=== PATIENT | female | born 1945 | race African-American/Black ===

== ENCOUNTER 2018-10-13 09:49 | Inpatient (IN) | payer MEDICARE, MEDICAID ==
[~2018-10-13] VITALS: Ht 165.1 cm; Wt 74.8 kg
[2018-10-13] MEDS ORDERED: ALBUTEROL SULF8.5 GM INH (09:54)
[2018-10-13] MEDS ORDERED: AMITRIPTYLINE100 MG PO (09:54)
[2018-10-13] MEDS ORDERED: LIPITOR20 MG PO (09:55)
[2018-10-13] MEDS ORDERED: NORVASC10 MG PO (09:55)
[2018-10-13] MEDS ORDERED: KLONOPIN1 MG PO (09:56)
[2018-10-13] MEDS ORDERED: PLAVIX75 MG PO (09:56)
[2018-10-13] MEDS ORDERED: COREG12.5 MG PO (09:56)
[2018-10-13] MEDS ORDERED: COMBIVENT RESPIM4 GM INH ×2 (09:57→09:58)
[2018-10-13] MEDS ORDERED: FLUTICASONE PRO16 GM NASAL (09:59)
[2018-10-13] MEDS ORDERED: NEXIUM40 MG PO (09:59)
[2018-10-13] MEDS ORDERED: NEURONTIN 300300 MG PO (10:10)
[2018-10-13] MEDS ORDERED: PRANDIN1 MG PO (10:11)
[2018-10-13] MEDS ORDERED: GLIPIZIDE10 MG PO (10:11)
[2018-10-13] MEDS ORDERED: ZANAFLEX2 M1 PO (10:11)
[2018-10-13] MEDS ORDERED: ULTRAM50 MG PO (10:12)
[2018-10-13] MEDS ORDERED: EFFEXOR75 MG PO (10:12)
[2018-10-13 11:03] LABS: BASOPHILS 0.1 % (0-2); EOSINOPHILS 0.1 % (0-7); HEMATOCRIT 34.6 % (36.0-48.0); HEMOGLOBIN 11.9 g/dL (12-16); IMMATURE GRANULOCYTES 0.4 % (0-5); LYMPHOCYTES 11.8 % (15-50); MCH 31.6 pg (26.0-34.0); MCHC 34.4 g/dL (31.0-37.0); MCV 91.8 fL (80.0-100.0); MEAN PLATELET VOLUME 9.5 fL (7.4-10.4); MONOCYTES 17.4 % (2-11); NEUTROPHILS 70.2 % (40-80); PLATELET COUNT 213 10x3/uL (130-400); RBC 3.77 10x6/uL (4.00-5.40); RDW 12.6 % (11.5-14.5); WBC 8.4 10x3/uL (4.8-10.8)
[2018-10-13 11:27] LABS: ALBUMIN 2.4 g/dL (3.4-5.0); ALKALINE PHOSPHATASE 69 U/L (46-116); ALT (SGPT) 26 U/L (10-68); CALC OSMOLALITY 258 mosm/kg (275-300); CALCIUM 8.2 mg/dL (8.5-10.1); CARBON DIOXIDE 28.6 mmol/L (21.0-32.0); CHLORIDE - SERUM 91 mmol/L (98-107); CREATININE - SERUM 0.7 mg/dL (0.6-1.3); GLUCOSE 197 mg/dL (74-106); POTASSIUM - SERUM 3.8 mmol/L (3.5-5.1); PROTEIN - SERUM 7.3 g/dL (6.4-8.2); SODIUM 127 mmol/L (136-145); UREA NITROGEN 10 mg/dL (7-18); eGFR NON AFRICAN AMERICAN 87 mL/min (90-120)
[2018-10-13 14:41] LABS: CKMB 23.9 U/L (0.0-3.6); TROPONIN-I < 0.017 ng/mL (0.000-0.060)
[2018-10-13 14:42] LABS: CREATINE KINASE 3703 UL (21-215)
[2018-10-13 14:50] LABS: APTT 27.6 SECONDS (22.8-39.4); INR 1.16 (0.85-1.17); PROTIME 14.3 SECONDS (11.6-15.0)
[2018-10-13 15:48] VITALS: BP 131/63; BMI 27.5
--- NOTE | 2018-10-13 16:00 | NUR ---
RECIEVED PT FROM ER VIA STRETCHER. ER NURSE WITH PT. ASSISTED PT INTO BED. VSS AND WNL. ASSESSMENT PERFORMED. DENIES ANY NEEDS AT THIS TIME, WILL CONT TO FOLLOW PLAN OF CARE
--- NOTE | 2018-10-13 16:39 | MORECARE ---
CASE MANAGEMENT DISCHARGE SUMMARY PATIENT: TRISTON DUNN UNIT: [id number] ADM DATE: 10/13/18 AGE: 73 : 47 SEX: F ROOM/BED: D.1209 AUTHOR: DONNA MAXWELL PHYSICIAN: REFERRING PHYSICIAN: TEETEE LUKE MD DATE OF SERVICE: 10/13/18 Discharge Plan Patient Name: TRISTON DUNN Facility: [facility]:[place] : 1945 Planned Disposition: Home Anticipated Discharge Date: 10/16/18 Discharge Date: Expected LOS: 3 Initial Reviewer: [email or web address] Initial Review Date: 10/13/2018 Generated: 10/13/18 5:39 pm Patient Name: TRISTON DUNN Page 00669 at 1639 All edits/amendments must be made on the electronic document DICTATION DATE: 10/13/18 163 SWITCHBOARD RECEPTIONIST: BALA 10/13/18 1639 RPT#: [id number] DC DATE: STATUS: ADM IN [facility] [address] [place] [address] END OF REPORT
--- NOTE | 2018-10-13 16:48 | MORECARE ---
CASE MANAGEMENT DISCHARGE SUMMARY PATIENT: TRISTON DUNN UNIT: [id number] ADM DATE: 10/13/18 AGE: 73 : 47 SEX: F ROOM/BED: D.1209 AUTHOR: ALISSA,DOC PHYSICIAN: REFERRING PHYSICIAN: TEETEE LUKE MD DATE OF SERVICE: 10/13/18 Discharge Plan Patient Name: TRISTON DUNN Facility: [facility]:[place] : 1945 Planned Disposition: Home Anticipated Discharge Date: 10/16/18 Discharge Date: Expected LOS: 3 Initial Reviewer: [email or web address] Initial Review Date: 10/13/2018 Generated: 10/13/18 5:48 pm DCP- Discharge Planning Updated by [email or web address]: Tricia Valera on 10/13/18 3:[address] Patient Name: TRISTON DUNN Admission Status: ER Accout number: [id number] Admission Date: 10-13-2018 : 1945 Admission Diagnosis: Attending: TEETEE LUKE Current LOS: 1 Anticipated DC Date: 10-16-2018 Planned Disposition: Home Primary Insurance: UNINSURED DISCOUNT PLAN Discharge Planning Comments: CM met with patient to complete initial dc planning assessment. CM educated patient on the CM role and verbal consent given by patient to complete assessment. Very hard at times to understand what patient is saying. Patient reports she lives at home alone and takes care of herself. At discharge patient plans to return home and feels this is a safe discharge. CM discussed availability of home health, rehab services, and medical equipment. Patient reports she has home health but she cant remember the name of the agency. Patient denied known discharge needs at this time. CM will continue to follow and will assist as needed with dc plans/needs. Street Engineer: Tricia Valera RN, [facility] DCPIA - Discharge Planning Initial Assessment Updated by [email or web address]: Tricia Valera on 10/13/18 4:42 pm * Is the patient Alert and Oriented? Yes * How many steps to enter\exit or inside your home? None * PCP Trent Marie * Pharmacy A pharmacy in [place] * Preadmission Environment Home Alone * ADLs Independent * Equipment Oxygen Rolling Walker Wheelchair * List name and contact numbers for known caregivers / representatives who currently or will assist patient after discharge: Shane elyva - [phone] * Verbal permission to speak to the caregivers and representatives has been obtained from the patient. Yes * Community resources currently utilized Home Health * Please name any agencies selected above. She doesn't know who the agency is. * Additional services required to return to the preadmission environment? No * Can the patient safely return to the preadmission environment? Yes * Has this patient been hospitalized within the prior 30 days at any hospital? No Last DP export: 10/13/18 3:39 p Patient Name: TRISTON DUNN Page [id number] at 1648 All edits/amendments must be made on the electronic document DICTATION DATE: 10/13/181647 FRUIT THINNER: BALA 10/13/181647 RPT#: [id number] DC DATE: STATUS: ADM IN [facility] [address] [place] [address] END OF REPORT
[2018-10-13 18:03] LABS: APPEARANCE CLEAR (CLEAR); BILIRUBIN NEGATIVE (NEGATIVE); COLOR YELLOW (YELLOW); GLUCOSE 1000 mg/dL (NEGATIVE); KETONE NEGATIVE (NEGATIVE); NITRITE NEGATIVE (NEGATIVE); PROTEIN TRACE mg/dL (NEGATIVE); UROBILINOGEN NORMAL (NORMAL)
[2018-10-13 18:11] LABS: BACTERIA MODERATE /hpf (NONE SEEN); EPITHELIAL CELLS 0-5 /hpf (0-5); RED CELLS - URINE 0-5 /hpf (0-5); WHITE CELLS - URINE 0-5 /hpf (0-5)
--- NOTE | 2018-10-13 18:15 | NUR ---
PT BROUGHT IN PAPERWORK FROM [facility] IN [place], THIS PAPERWORK SHOWS AN ADMISSION ON 10/07/18 AND DISCHARGE ON 10/08/18. THIS RN CALLED [facility] AND SPOKE WITH CHARGE NURSE. PER CHARGE NURSE, PT WAS ADMITTED IN THE AFTERNOON AND THE NEXT DAY HER FAMILY WANTED HER DISCHARGED FROM THE FACILITY. THIS RN CALLED CARLEE, PT'S SISTER, TO DISCUSS THE RECENT ADMISSION TO [facility]. PER CARLEE, THE FAMILY TOOK THE PT TO [facility] IN [place] DUE TO HER "ACTING UP." (WHEN ASKED FOR MORE DETAIL ON "ACTING UP" THE SISTER SAID THE PT WAS YELLING AND SCREAMING AT PEOPLE) ONCE THERE AT [facility], THE FAMILY REQUESTED AN EVALUATION OF THE PT DUE TO HER NEW ONSET OF "ACTING UP." THIS IS WHEN THE PT WAS TRANSFERRED TO [facility] IN [place]. THE SISTER STATES THE FAMILY DID NOT WANT THE PT AT [facility] BECAUSE "ALL THEY DO IS KEEP THEM DOPED UP." THE SISTER STATES SHE WAS NOT WITH THE PT WHEN THE PT WAS "ACTING OUT" AND THAT THE PT'S SON-IN-LAW WAS PRESENT. SISTER GAVE RN THE SON-IN-LAW'S NUMBER. PER THE PT'S SON-IN-LAW, THE PATIENT WAS OUTSIDE YELLING AT HER NEIGHBORS AND COMPLAINING OF CHILDREN IN HER HOUSE. WHEN THE SON-IN-LAW SHOWED UP, THE PT HAD HER FRONT DOOR WIDE OPEN AND SHE WAS IN HER ROOM YELLING ABOUT THE CHILDREN. SON-IN-LAW STATES THERE WERE NO CHILDREN PRESENT. THIS IS WHEN HE DECIDED TO TAKE THE PT TO [facility] IN [place]. THIS IS WHAT PRECEEDED THE ABOVE NOTES. SON-IN-LAW STATES THEY HAVE A CAREGIVER THAT COMES IN THE MORNINGS TO ASSIST THE PT WITH MEALS AND HER DAILY MEDS. SON-IN-LAW STATES THE NEW ONSET OF YELLING AND SEEING THINGS HAS BEEN GOING ON FOR ABOUT 3 WEEKS. THE FAMILY IS CONCERNED THAT THE NEW ONSET IS DUE TO MEDICATIONS. SINCE PT HAS BEEN ON THE FLOOR SHE HAS PULLED THE TUBING OFF OF HER IV AND THEN STARTED YELLING BECAUSE HER BED WAS WET FROM THE NS THAT DRIPPED INTO HER BED. SHE THEN STARTED YELLING ONCE RN DISCONNECTED NS FROM THE PIV BECAUSE THERE WAS BLOOD IN THE J-LOOP. RN CALMED PT DOWN AND A FULL BED LINEN CHANGE WAS PROVIDED.
[2018-10-13 20:15] VITALS: BP 148/73
[2018-10-14 00:30] VITALS: BP 134/63
[2018-10-14 05:47] VITALS: BP 147/75
[2018-10-14 07:15] LABS: APPEARANCE CLEAR (CLEAR); BILIRUBIN NEGATIVE (NEGATIVE); COLOR DK YELLOW (YELLOW); GLUCOSE 1000 mg/dL (NEGATIVE); KETONE NEGATIVE (NEGATIVE); NITRITE NEGATIVE (NEGATIVE); PROTEIN 1+ mg/dL (NEGATIVE); UROBILINOGEN NORMAL (NORMAL)
[2018-10-14 07:17] LABS: BACTERIA FEW /hpf (NONE SEEN); EPITHELIAL CELLS 0-5 /hpf (0-5); RED CELLS - URINE 0-5 /hpf (0-5); WHITE CELLS - URINE 0-5 /hpf (0-5)
[2018-10-14 07:32] LABS: BASOPHILS 0.1 % (0-2); EOSINOPHILS 0.3 % (0-7); HEMATOCRIT 34.8 % (36.0-48.0); IMMATURE GRANULOCYTES 0.1 % (0-5); LYMPHOCYTES 16.5 % (15-50); MCH 31.5 pg (26.0-34.0); MCHC 34.5 g/dL (31.0-37.0); MCV 91.3 fL (80.0-100.0); MEAN PLATELET VOLUME 9.4 fL (7.4-10.4); MONOCYTES 11.5 % (2-11); NEUTROPHILS 71.5 % (40-80); PLATELET COUNT 243 10x3/uL (130-400); RBC 3.81 10x6/uL (4.00-5.40); RDW 12.7 % (11.5-14.5); WBC 6.9 10x3/uL (4.8-10.8)
[2018-10-14 07:40] LABS: UDS - AMPHET NEGATIVE QUAL (NEGATIVE); UDS - BARB NEGATIVE QUAL (NEGATIVE); UDS - BENZO NEGATIVE QUAL (NEGATIVE); UDS - COCAINE NEGATIVE QUAL (NEGATIVE); UDS - OPIATE NEGATIVE QUAL (NEGATIVE); UDS - PCP NEGATIVE QUAL (NEGATIVE); UDS - THC NEGATIVE QUAL (NEGATIVE)
--- NOTE | 2018-10-14 08:00 | NUR ---
AWAKE AND ALERT. DENIES NEEDS. ORIENTED X3 BUT HAS PERIODS OF FORGETFULLNESS POSSIBLE CONFUSION. LUNGS ARE CLEAR BILATERALLY, NO COUGH NOTED. SKIN IS INTACT WITHOUT REDNESS. IV TO LEFT HAND IS PATENT BUT CONTINUES TO BEEP OFTEN. PATIENT COMPLAINED IT KEPT HER UP ALL PM. WILL MONITOR. BREAKFAST SERVED IN ROOM. DENIES NEEDS.
[2018-10-14 08:10] LABS: ALBUMIN 2.4 g/dL (3.4-5.0); ALKALINE PHOSPHATASE 86 U/L (46-116); ALT (SGPT) 34 U/L (10-68); BILIRUBIN - TOTAL 0.75 mg/dL (0.2-1.3); CALC OSMOLALITY 257 mosm/kg (275-300); CALCIUM 8.3 mg/dL (8.5-10.1); CARBON DIOXIDE 28.2 mmol/L (21.0-32.0); CHLORIDE - SERUM 94 mmol/L (98-107); CREATININE - SERUM 0.5 mg/dL (0.6-1.3); GLUCOSE 125 mg/dL (74-106); POTASSIUM - SERUM 3.5 mmol/L (3.5-5.1); PROTEIN - SERUM 7.5 g/dL (6.4-8.2); SODIUM 129 mmol/L (136-145); UREA NITROGEN 6 mg/dL (7-18); eGFR NON AFRICAN AMERICAN > 90 mL/min (90-120)
--- NOTE | 2018-10-14 09:00 | NUR ---
UP TO BSC WITH ONE PERSON MIN ASSIST. GAIT IS NOT STEADY AT THIS TIME. FALL PRECAUTIONS IN PLACE WELL.
[2018-10-14 09:07] VITALS: BP 132/69
[2018-10-14 09:36] LABS: % SATURATION 9 % (15-55); IRON 24 ug/dl (35-150); TOTAL IRON BIND CAPACITY 256 ug/dl (260-445); UNSAT IRON BIND CAPACITY 232 ug/dl (150-375)
--- NOTE | 2018-10-14 10:30 | NUR ---
UP TO BSC WITH ONE PERSON ASSIST. VOIDED WITHOUT DIFFICULTY. PATIENT WAS UP ON SIDE OF BED BEFORE STAFF COULD GET TO ROOM. WILL MONITOT. ENCOURAGED TO USE CALL LIGHT AND WAIT FOR ASSISTANCE.
--- NOTE | 2018-10-14 12:00 | NUR ---
FSBS 165. GIVEN 2 UNITS REGULAR SUBQ PER SS.
[2018-10-14 12:13] VITALS: Ht 165.1 cm; Wt 74.8 kg
--- NOTE | 2018-10-14 12:30 | NUR ---
LUNCH SERVED IN ROOM.
--- NOTE | 2018-10-14 13:45 | NUR ---
UP TO BS WITH ONE PERSON ASSIST. STAFF WAS WITH PATIENT BUT SHE FELL TO FLOOR ON HER BACKSIDE. REPORTS SOME PAIN TO THAT AREA. DENIES NEEDS.
[2018-10-14 13:50] VITALS: BP 124/54
--- NOTE | 2018-10-14 15:00 | NUR ---
ATE MOST OF LUNCH TRAY. UP TO BSC WITH ONE PERSON ASSIST. IV TO LEFT WRIST NON FUNCTIONAL. D/C WITH CATHETER INTACT. RESITED TO LEFT FORARM AFTER ONE ATTEMPT WITH 20 G. DENIES NEEDS.
[2018-10-14 17:35] VITALS: BP 133/64
[2018-10-14 19:30] VITALS: BP 125/63
--- NOTE | 2018-10-14 19:33 | NUR ---
RESPONDED TO PATIENT'S BED ALARM SOUNDING. ASSISTED PATIENT TO AND FROM BSC. COLLECTED STOOL SPECIMEN. PATIENT DENIES OTHER NEEDS AT THIS TIME. NO S/S OF DISTRESS. BED IN LOWEST POSITION AND CALL LIGHT WITHIN REACH. ENCOURAGED THE PATIENT TO CALL IF SHE HAS NEEDS. WILL CONTINUE TO MONITOR.
[2018-10-15] VITALS: BP 145/74
[2018-10-15 04:00] VITALS: BP 124/56
[2018-10-15 08:00] VITALS: BP 128/67
--- NOTE | 2018-10-15 08:06 | NUR ---
AWAKE AND ALERT. ORIENTED X3. NO C/O PAIN THIS AM JUST FEELS LOUSY FROM LACK OF SLEEP. LUNGS ARE CLEAR BILATERALLY, NO COUGH NOTED. SKIN IS INTAC WTIHOUT REDNESS. IV TO LEFT FOREARM IS PATENT WIHHOUT REDNESS AT INSERTION SITE. SITTING UP ON SIDE OF BED EATING BREAKFAST. DENIES NEEDS.
--- NOTE | 2018-10-15 09:30 | NUR ---
AMBULATED IN HALLWAY WITH PT USING RW. UP TO BSC WITH ONE PERSON MIN ASSIST HAD LARGE SOFT SEMI FORMED BM. DENIES NEEDS.
[2018-10-15 09:43] LABS: BASOPHILS 0.2 % (0-2); CALCIUM 8.2 mg/dL (8.5-10.1); CARBON DIOXIDE 28.3 mmol/L (21.0-32.0); CHLORIDE - SERUM 96 mmol/L (98-107); EOSINOPHILS 0.7 % (0-7); HEMATOCRIT 33.1 % (36.0-48.0); HEMOGLOBIN 11.1 g/dL (12-16); IMMATURE GRANULOCYTES 0.2 % (0-5); LYMPHOCYTES 15.2 % (15-50); MCH 30.8 pg (26.0-34.0); MCHC 33.5 g/dL (31.0-37.0); MCV 91.9 fL (80.0-100.0); MONOCYTES 12.1 % (2-11); NEUTROPHILS 71.6 % (40-80); PLATELET COUNT 240 10x3/uL (130-400); POTASSIUM - SERUM 3.4 mmol/L (3.5-5.1); RDW 12.6 % (11.5-14.5); SODIUM 131 mmol/L (136-145); WBC 5.6 10x3/uL (4.8-10.8); eGFR NON AFRICAN AMERICAN 87 mL/min (90-120)
[2018-10-15 09:46] LABS: CALC OSMOLALITY 264 mosm/kg (275-300); CREATININE - SERUM 0.7 mg/dL (0.6-1.3); GLUCOSE 195 mg/dL (74-106); UREA NITROGEN 4 mg/dL (7-18)
[2018-10-15 12:00] VITALS: BP 116/59
[2018-10-15 16:22] VITALS: BP 106/64
--- NOTE | 2018-10-15 18:07 | NUR ---
ATE ALL OF SUPPER. UP TO BSC WITH ONE PERSON ASSIST. HAD LARGE LIGHT BROWN COW ROHITH STOOL. SKIN CARE PER SELF. DENIES NEEDS. NO CHANGES NOTED.
--- NOTE | 2018-10-15 19:22 | NUR ---
RESPONDED TO PATIENT'S BED ALARM SOUNDING. ASSISTED PATIENT BACK TO BED AND REMINDED HER TO USE HER CALL LIGHT IF SHE HAS NEEDS. PATIENT DENIES NEEDS AT THIS TIME. BED IN LOWEST POSITION, CALL LIGHT WITHIN REACH, AND BED ALARM ON. WILL CONTINUE TO MONITOR.
[2018-10-15 19:38] VITALS: BP 119/68
[2018-10-16 00:43] VITALS: BP 119/56
[2018-10-16 04:24] VITALS: BP 143/63
[2018-10-16 07:25] LABS: BASOPHILS 0.3 % (0-2); EOSINOPHILS 1.4 % (0-7); HEMATOCRIT 32.1 % (36.0-48.0); HEMOGLOBIN 11.1 g/dL (12-16); IMMATURE GRANULOCYTES 0.5 % (0-5); LYMPHOCYTES 20.7 % (15-50); MCH 31.4 pg (26.0-34.0); MCHC 34.6 g/dL (31.0-37.0); MCV 90.9 fL (80.0-100.0); MEAN PLATELET VOLUME 8.7 fL (7.4-10.4); MONOCYTES 11.4 % (2-11); NEUTROPHILS 65.7 % (40-80); PLATELET COUNT 261 10x3/uL (130-400); RBC 3.53 10x6/uL (4.00-5.40); RDW 12.7 % (11.5-14.5); WBC 5.8 10x3/uL (4.8-10.8)
[2018-10-16 07:50] LABS: CALC OSMOLALITY 266 mosm/kg (275-300); CALCIUM 8.4 mg/dL (8.5-10.1); CARBON DIOXIDE 28.7 mmol/L (21.0-32.0); CHLORIDE - SERUM 97 mmol/L (98-107); CREATININE - SERUM 0.6 mg/dL (0.6-1.3); GLUCOSE 179 mg/dL (74-106); POTASSIUM - SERUM 3.6 mmol/L (3.5-5.1); SODIUM 133 mmol/L (136-145); UREA NITROGEN 4 mg/dL (7-18); eGFR NON AFRICAN AMERICAN > 90 mL/min (90-120)
[2018-10-16 09:07] VITALS: BP 129/70
--- NOTE | 2018-10-16 10:30 | NUR ---
PATIENT GOT AGITATED WITH HER FAMILY AND START WALKING TO WIND TURBINE MECHANIC WITH HER BAG TO LEAVE THIS HOSPITAL. SECURITY WAS CALLED TO ASSIST PATIENT BACK TO HER ROOM AND RETURNED HER IN A WHEELCHAIR. SHE SHORTLY LEFT THE FLOOR AGAIN, VERY DIFFICULT TO REDIRECT. SHE THREATENS TO "BEAT US UP".
--- NOTE | 2018-10-16 11:30 | NUR ---
DR. FELDMAN WAS CAllED RE; STAUS OF PATIENT.
[2018-10-16 12:28] VITALS: BP 127/55
--- NOTE | 2018-10-16 13:44 | NUR ---
pt was found attempting to leave the hospital. got pt back to her room. she continues to be verbally agitated and difficult to redirect. pt wants to leave and is refusing to stay in her room. nurse has paged Yoko CLEMENTS twice to let her know the pt's behavior.
--- NOTE | 2018-10-16 14:15 | NUR ---
spoke with dr. hui who does not feel that the pt would be safe to go home. she was put on a 72 hours hold. i reviewed 72 hours hold paperwork with the pt, and she refused to sign it. she was very agitated and attempted to hit this nurse. she then threatened to "whoop my but" if i did not get away from her.
--- NOTE | 2018-10-16 14:35 | NUR ---
PHYSICAL THERAPY HERE TO AMBULATE PATIENT IN HALLWAY WITH WALKER. SHE AGREED TO GO WALKING.
[2018-10-16] MEDS ORDERED: Levaquin PREMIX PO (15:01)
[2018-10-16] MEDS ORDERED: LEVAQUIN750 MG PO (15:42)
--- NOTE | 2018-10-16 17:28 | MORECARE ---
CASE MANAGEMENT DISCHARGE SUMMARY PATIENT: CARRIE DUNN UNIT: [id number] ADM DATE: 10/13/18 AGE: 73 : 47 SEX: F ROOM/BED: D.1209 AUTHOR: ALISSA,DOC PHYSICIAN: REFERRING PHYSICIAN: TEETEE LUKE MD DATE OF SERVICE: 10/16/18 Discharge Plan Patient Name: CARRIE DUNN Facility: [facility]:[place] : 1945 Planned Disposition: Home Anticipated Discharge Date: 10/16/18 Discharge Date: Expected LOS: 3 Initial Reviewer: [email or web address] Initial Review Date: 10/13/2018 Generated: 10/16/18 6:28 pm Comments DCP- Discharge Planning Updated by [email or web address]: Carrie Her on 10/16/18 4:[address] PATIENT EVALUATED BY THE CONSTRUCTION EQUIPMENT OPERATOR OF [facility]. 72 HOUR HOLD PLACED. PLAN IS FOR THE PATIENT TO BE TRANSFERED TO [facility] THIS PM. FAMILY WAS AT THE PATIENT'S SIDE IN THE HALLWAY TODAY PATIENT DECLINED TO GO RETURN TO HER ROOM. THEY ARE COGNIZANT OF THE PLAN. DCP- Discharge Planning Updated by [email or web address]: Tricia Valera on 10/13/18 3:[address] Patient Name: CARRIE DUNN Admission Status: ER Accout number: [id number] Admission Date: 10-13-2018 : 1945 Admission Diagnosis: Attending: TEETEE LUKE Current LOS: 1 Anticipated DC Date: 10-16-2018 Planned Disposition: Home Primary Insurance: UNINSURED DISCOUNT PLAN Discharge Planning Comments: CM met with patient to complete initial dc planning assessment. CM educated patient on the CM role and verbal consent given by patient to complete assessment. Very hard at times to understand what patient is saying. Patient reports she lives at home alone and takes care of herself. At discharge patient plans to return home and feels this is a safe discharge. CM discussed availability of home health, rehab services, and medical equipment. Patient reports she has home health but she cant remember the name of the agency. Patient denied known discharge needs at this time. CM will continue to follow and will assist as needed with dc plans/needs. Enterprise Application Administrator: Tricia Valera RN, CCM DCPIA - Discharge Planning Initial Assessment Updated by [email or web address]: Tricia Valera on 10/13/18 4:42 pm * Is the patient Alert and Oriented? Yes * How many steps to enter\exit or inside your home? None * PCP Trent Marie * Pharmacy A pharmacy in [place] * Preadmission Environment Home Alone * ADLs Independent * Equipment Oxygen Rolling Walker Wheelchair * List name and contact numbers for known caregivers / representatives who currently or will assist patient after discharge: Shane leyva - [phone] * Verbal permission to speak to the caregivers and representatives has been obtained from the patient. Yes * Community resources currently utilized Home Health * Please name any agencies selected above. She doesn't know who the agency is. * Additional services required to return to the preadmission environment? No * Can the patient safely return to the preadmission environment? Yes * Has this patient been hospitalized within the prior 30 days at any hospital? No Last DP export: 10/13/18 3:48 p Patient Name: CARRIE DUNN Page [id number] at 1728 All edits/amendments must be made on the electronic document DICTATION DATE: 10/16/181726 BILL OF LADING CLERK: BALA 10/16/181726 RPT#: [id number] DC DATE: STATUS: ADM IN [facility] [address] [place] [address] END OF REPORT
--- NOTE | 2018-10-16 17:30 | NUR ---
DISCHARGED FROM MED [facility] ON 72 HR. HOLD
--- NOTE | 2018-10-17 08:41 | MORECARE ---
CASE MANAGEMENT DISCHARGE SUMMARY PATIENT: CARRIE DUNN UNIT: [id number] ADM DATE: 10/13/18 AGE: 73 : 47 SEX: F ROOM/BED: D.1209 AUTHOR: ALISSA,DOC PHYSICIAN: REFERRING PHYSICIAN: TEETEE LUKE MD DATE OF SERVICE: 10/17/18 Discharge Plan Patient Name: CARRIE DUNN Facility: [facility]:[place] : 1945 Planned Disposition: Psych facility Anticipated Discharge Date: 10/16/18 Discharge Date: 10/16/2018 Expected LOS: 3 Initial Reviewer: [email or web address] Initial Review Date: 10/13/2018 Generated: 10/17/18 9:41 am Comments DCP- Discharge Planning Updated by [email or web address]: Carrie Her on 10/16/18 4:[address] PATIENT EVALUATED BY THE SCREEN EXAMINER OF [facility]. 72 HOUR HOLD PLACED. PLAN IS FOR THE PATIENT TO BE TRANSFERED TO [facility] THIS PM. FAMILY WAS AT THE PATIENT'S SIDE IN THE HALLWAY TODAY PATIENT DECLINED TO GO RETURN TO HER ROOM. THEY ARE COGNIZANT OF THE PLAN. DCP- Discharge Planning Updated by [email or web address]: Tricia Valera on 10/13/18 3:[address] Patient Name: CARRIE DUNN Admission Status: ER Accout number: [id number] Admission Date: 10-13-2018 : 1945 Admission Diagnosis: Attending: TEETEE LUKE Current LOS: 1 Anticipated DC Date: 10-16-2018 Planned Disposition: Home Primary Insurance: UNINSURED DISCOUNT PLAN Discharge Planning Comments: CM met with patient to complete initial dc planning assessment. CM educated patient on the CM role and verbal consent given by patient to complete assessment. Very hard at times to understand what patient is saying. Patient reports she lives at home alone and takes care of herself. At discharge patient plans to return home and feels this is a safe discharge. CM discussed availability of home health, rehab services, and medical equipment. Patient reports she has home health but she cant remember the name of the agency. Patient denied known discharge needs at this time. CM will continue to follow and will assist as needed with dc plans/needs. Rn Transitional Care: Tricia Valera RN, [facility] DCPIA - Discharge Planning Initial Assessment Updated by [email or web address]: Tricia Valera on 10/13/18 4:42 pm * Is the patient Alert and Oriented? Yes * How many steps to enter\exit or inside your home? None * PCP Trent Marie * Pharmacy A pharmacy in [place] * Preadmission Environment Home Alone * ADLs Independent * Equipment Oxygen Rolling Walker Wheelchair * List name and contact numbers for known caregivers / representatives who currently or will assist patient after discharge: Shane leyva - [phone] * Verbal permission to speak to the caregivers and representatives has been obtained from the patient. Yes * Community resources currently utilized Home Health * Please name any agencies selected above. She doesn't know who the agency is. * Additional services required to return to the preadmission environment? No * Can the patient safely return to the preadmission environment? Yes * Has this patient been hospitalized within the prior 30 days at any hospital? No Last DP export: 10/16/18 4:28 p Patient Name: CARRIE DUNN Page [id number] at 0841 All edits/amendments must be made on the electronic document DICTATION DATE: 10/17/18840 REGIONAL EHS MANAGER: BALA 10/17/18840 RPT#: [id number] DC DATE:10/16/18 STATUS: DIS IN [place] [id number] [place] [address] END OF REPORT
[2018-10-17 09:21] LABS: FOLATE (FOLIC ACID) - SERUM 9.3 ng/mL (>3.0)
== END 2018-10-16 17:30 | disposition short-term general hospital (02) | DRG 640 ==
LOC: D.ER 09:49 → D.M3 14:32
PROVIDERS: Family Medicine; ADMIT Internal Medicine Nephrology; ATTEND Internal Medicine Nephrology
DX: E87.1 Hypo-osmolality and hyponatremia (principal); J18.1 Lobar pneumonia, unspecified organism; N17.9 Acute kidney failure, unspecified; E11.9 Type 2 diabetes mellitus without complications; I25.10 Atherosclerotic heart disease of native coronary artery without angina pectoris; I10 Essential (primary) hypertension; K21.9 Gastro-esophageal reflux disease without esophagitis; D64.9 Anemia, unspecified; M25.552 Pain in left hip; W19.XXXA Unspecified fall, initial encounter

== ENCOUNTER 2018-10-16 17:48 | Inpatient (IN) | payer MEDICARE, MEDICAID ==
[~2018-10-16] VITALS: Ht 165.1 cm; Wt 75.8 kg
--- NOTE | ~2018-10-16 | PN ---
PATIENT:TRISTON BISHOP MEDICAL RECORD: [id number] LOCATION:[facility] ADMISSION DATE: 10/16/18 PROGRESS NOTE DATE OF SERVICE: 10/20/2018 SUBJECTIVE: Ms. Bishop is a 73-year-old female, who has been living alone with an aide coming in Tuesday through for 4 hours a day. Family is stating that the patient on Tuesday; however, will decompensate and multiple times in the last month has ended up in an Emergency Room or hospital. The patient did have agitated, aggressive behaviors up on the floor and family has noted these as well. The patient since basically sent down to unit has been calm, cooperative, alert and oriented times 4. Family states a history of drug abuse, although the patient denies. The patient does admit that she perhaps may be confusing her medications at times and it might be leading to some confusion. She is eating 20%, 15%, and 50%. Last bowel movement was 19th. Last blood sugar 77 and slept 7.75 hours. ASSESSMENT: Unchanged. PLAN: Family is trying to get increased caregiver help in for this patient. I have recommended an electronic pillbox that will only open at the time that is set so the patient has less of a chance to be confused and/or overtake her medications. Considering her reported substance history about family, we will discontinue Klonopin today. Case discussed with nursing, chart reviewed, and patient interviewed. TRANSINT:[id number] Voice Confirmation ID: [id number] DOCUMENT ID: [id number] AISHWARYA ANDINO MD CC: [id number] DICTATION DATE: 10/20/18 1456 AIRLINE SECURITY REPRESENTATIVE: 10/20/18 2150 ADM IN [place] [address] [place] [address]
--- NOTE | ~2018-10-16 | DS ---
PATIENT:TRISTON DUNN :[birth year] MEDICAL RECORD: [id number] DISCHARGE SUMMARY ADMISSION DATE: 10/16/18 DISCHARGE DATE: 10/23/18 IDENTIFYING DATA: The patient is 73 years old and she was admitted to the hospital on a voluntary basis. The patient was brought to the Emergency Room and initially had been diagnosed with pneumonia. She apparently had had a recent decline of some sort and had become aggressive both with the family at home and then with the nursing staff here in the hospital. The pneumonia had been reasonably or partially treated and she was subsequently referred to the behavioral unit for additional evaluation and treatment. HOSPITAL COURSE: The patient was admitted to the hospital and fully evaluated from both a medical, psychological, and social standpoint. She was treated with both mood stabilizing and memory enhancing medications and showed significant improvement. She was found to have a serious and significant impairment consistent with Alzheimer's disease. After the medication management, she became much more appropriate and was no longer having the aggressive behaviors, but was still impaired cognitively. DISCHARGE DIAGNOSES: AXIS I: 1. Major depressive disorder, moderate severity without psychotic features. 2. Senile dementia of the Alzheimer's type. AXIS II: None. AXIS III: Pneumonia, chronic obstructive pulmonary disease, hypertension, coronary artery disease, hyperlipidemia. AXIS IV: Moderate stressors. AXIS V: Global assessment of functioning is 30. PLAN: At the time of discharge, the patient was in good behavioral control and had no evidence of acute or direct dangerousness. She was tolerating her medications well. Her long-term prognosis is guarded. TRANSINT:[id number] Voice Confirmation ID: [id number] DOCUMENT ID: [id number] RICARDO HOYT MD CC: [id number] DICTATION DATE: 10/25/18 1538 TAPE STRINGER: 10/26/18 0814 DIS IN 10/23/18 [facility] [address] [place] [id number]
--- NOTE | ~2018-10-16 | PN ---
PATIENT:TRISTON BISHOP MEDICAL RECORD: [id number] LOCATION:[facility] ADMISSION DATE: 10/16/18 PROGRESS NOTE DATE OF SERVICE: 10/21/2018 SUBJECTIVE: Ms. Bishop is a 73-year-old female who was admitted secondary to aggression with staff when she was up on the floor being treated for right lower lobe pneumonia. She is alert and oriented times 3. Her family states that while she is with caregiver Tuesday through , she does okay, but on Tuesday, she seems to decompensate, thought maybe to be secondary to missed taking her medications. Today on interview, patient lying on the couch. She states she is in pain. States she has not had a bowel movement and there is not one recorded since 10/17/2018, and on exam, the patient's abdomen is distended. Her latest fasting blood sugar is 60 and slept 9.75 hours. She has been cooperative, not combative. PHYSICAL EXAMINATION: VITAL SIGNS: Latest have been; 98.4, 79, 20, 121/70 and pulse ox is 98. ASSESSMENT: Unchanged. PLAN: Medical coverage is getting KUB, has changed her to a low residue diet with simethicone. We will continue present management psychiatrically. Family is trying to get the most help in their as possible and have recommended an electronic pillbox to so the patient be less likely to overtake or get confused with meds if that is the etiology of her confusions particularly on non-supervised days. Case discussed with nursing. Chart was reviewed and the patient interviewed. TRANSINT:[id number] Voice Confirmation ID: [id number] DOCUMENT ID: [id number] AISHWARYA ANDINO MD CC: [id number] DICTATION DATE: 10/21/18 1437 NUISANCE WILDLIFE CONTROL OPERATOR: 10/21/18 4009 ADM IN [facility] [address] [place] [address]
[~2018-10-16 17:48] MED LIST: ALBUTEROL SULF8.5 GM INH; AMITRIPTYLINE100 MG PO; COMBIVENT RESPIM4 GM INH; COREG12.5 MG PO; EFFEXOR75 MG PO; FLUTICASONE PRO16 GM NASAL; GLIPIZIDE10 MG PO; KLONOPIN1 MG PO; LEVAQUIN750 MG PO; LIPITOR20 MG PO; Levaquin PREMIX PO; NEURONTIN 300300 MG PO; NEXIUM40 MG PO; NORVASC10 MG PO; PLAVIX75 MG PO; PRANDIN1 MG PO; ULTRAM50 MG PO; ZANAFLEX2 M1 PO
[2018-10-16 19:38] LABS: BASOPHILS 0.3 % (0-2); HEMATOCRIT 35.5 % (36.0-48.0); HEMOGLOBIN 12.1 g/dL (12-16); IMMATURE GRANULOCYTES 0.8 % (0-5); LYMPHOCYTES 20.5 % (15-50); MCH 30.9 pg (26.0-34.0); MCHC 34.1 g/dL (31.0-37.0); MCV 90.8 fL (80.0-100.0); MEAN PLATELET VOLUME 9.1 fL (7.4-10.4); MONOCYTES 10.6 % (2-11); NEUTROPHILS 66.8 % (40-80); PLATELET COUNT 253 10x3/uL (130-400); RBC 3.91 10x6/uL (4.00-5.40); RDW 12.6 % (11.5-14.5); WBC 6.2 10x3/uL (4.8-10.8)
[2018-10-16 19:52] LABS: ALBUMIN 2.5 g/dL (3.4-5.0); ALKALINE PHOSPHATASE 81 U/L (46-116); ALT (SGPT) 32 U/L (10-68); BILIRUBIN - TOTAL 0.36 mg/dL (0.2-1.3); CALCIUM 8.7 mg/dL (8.5-10.1); CARBON DIOXIDE 27.3 mmol/L (21.0-32.0); CHLORIDE - SERUM 91 mmol/L (98-107); CHOL - HDL RATIO 2.7 ratio (2.3-4.1); CHOLESTEROL, TOTAL 78 mg/dL (0-200); HDL CHOLESTEROL 29 mg/dL (32-96); LDL CHOLESTEROL 37 mg/dL (0-100); LDL-HDL RATIO 1.3 ratio (1.5-3.5); POTASSIUM - SERUM 3.2 mmol/L (3.5-5.1); PROTEIN - SERUM 7.4 g/dL (6.4-8.2); THYROID STIMULATING HORMONE 1.68 uIU/mL (0.36-3.74); TRIGLYCERIDE 64 mg/dL (30-200)
[2018-10-16 19:58] LABS: CALC OSMOLALITY 239 mosm/kg (275-300); CREATININE - SERUM 0.8 mg/dL (0.6-1.3); GLUCOSE 252 mg/dL (74-106); UREA NITROGEN 7 mg/dL (7-18); eGFR NON AFRICAN AMERICAN 75 mL/min (90-120)
[2018-10-16 20:00] LABS: SODIUM 115 mmol/L (136-145)
[2018-10-16 22:18] VITALS: BP 124/78
[2018-10-17 08:09] VITALS: BMI 27.8
[2018-10-17 08:47] VITALS: BP 124/78
[2018-10-17 12:12] VITALS: Ht 165.1 cm; Wt 75.8 kg
[2018-10-17 19:49] VITALS: BP 123/75
[2018-10-18 07:30] LABS: VITAMIN D 25 HYDROXY 13.7 ng/mL (30.0-100.0)
[2018-10-18 08:12] VITALS: BP 135/92
[2018-10-18 08:23] LABS: RAPID PLASMA REAGIN Non Reactive (Non Reactive)
[2018-10-18 08:51] LABS: BASOPHILS 0.3 % (0-2); EOSINOPHILS 1.1 % (0-7); HEMOGLOBIN 12.8 g/dL (12-16); IMMATURE GRANULOCYTES 1.7 % (0-5); LYMPHOCYTES 21.1 % (15-50); MCH 31.5 pg (26.0-34.0); MCHC 34.6 g/dL (31.0-37.0); MCV 91.1 fL (80.0-100.0); MONOCYTES 10.8 % (2-11); PLATELET COUNT 269 10x3/uL (130-400); RBC 4.06 10x6/uL (4.00-5.40); RDW 12.7 % (11.5-14.5); WBC 6.6 10x3/uL (4.8-10.8)
[2018-10-18 09:11] LABS: CALC OSMOLALITY 267 mosm/kg (275-300); CALCIUM 8.6 mg/dL (8.5-10.1); CARBON DIOXIDE 30.4 mmol/L (21.0-32.0); CHLORIDE - SERUM 95 mmol/L (98-107); CREATININE - SERUM 0.6 mg/dL (0.6-1.3); GLUCOSE 169 mg/dL (74-106); SODIUM 132 mmol/L (136-145); UREA NITROGEN 11 mg/dL (7-18); eGFR NON AFRICAN AMERICAN > 90 mL/min (90-120)
[2018-10-18 19:53] VITALS: BP 132/69
[2018-10-19 10:06] VITALS: BP 169/75
[2018-10-20 09:15] VITALS: BP 138/80
[2018-10-21 08:00] VITALS: BP 121/70
[2018-10-21 08:49] LABS: APPEARANCE HAZY (CLEAR); BILIRUBIN NEGATIVE (NEGATIVE); COLOR YELLOW (YELLOW); GLUCOSE NEGATIVE (NEGATIVE); KETONE NEGATIVE (NEGATIVE); NITRITE NEGATIVE (NEGATIVE); PROTEIN NEGATIVE (NEGATIVE); UROBILINOGEN NORMAL (NORMAL)
--- NOTE | 2018-10-21 12:52 | HP ---
PATIENT: TRISTON DUNN MEDICAL RECORD: [id number] ACCOUNT: [id number] LOCATION:[id number] : 47 ADMISSION DATE: 10/16/18 PCP: YANDY LAROSE HISTORY AND PHYSICAL EXAMINATION HISTORY OF PRESENT ILLNESS: Ms. Dunn is a 73-year-old female who by report from family had been found on her lawn by family and brought into the Emergency Room where she was diagnosed with, I believe, a right lower lobe pneumonia. The patient's family states that for quite some time now, the patient's behavior has been "going down" and her PCP's office seconds this. Whenever she came into the hospital, she started getting aggressive with staff there, flipping from the patient in pleasant to aggressive. She, on interview, was able to give me a fairly good sequence of events, although she minimized any behavior up on the floor that she had had. Nursing reports that the patient was yelling, kicking out, verbally abusive to staff yesterday although much different today. PAST PSYCHIATRIC HISTORY: She denies, noted she is on several psychiatric medications including Effexor and clonazepam. PAST MEDICAL PROBLEMS: Include coronary artery disease, acid reflux, and arthritis. ALLERGIES: CODEINE, METHADONE, AND MORPHINE. MEDICATIONS: From the floor, medications include Levaquin 750 mg daily, #5, albuterol 2 puffs inhalation q.4 hours p.r.n., Elavil 100 mg 1 p.o. at bedtime, Norvasc 10 mg 1 p.o. daily, Lipitor 20 mg at bedtime, Coreg 25 mg b.i.d. with meals, Klonopin 1 mg at bedtime, Plavix 75 mg daily, ipratropium-albuterol, Combivent, 1 puff q.i.d., fluconazole nasal spray 1 spray nasal daily, Neurontin 300 mg at bedtime, Glucotrol 10 mg b.i.d. before meals, Prandin 0.5 p.o. t.i.d., Zanaflex 2 mg q.6 hours p.r.n. pain, tramadol 50 mg q.6 hours p.r.n. pain, and Effexor XR 75 mg b.i.d. DRUG AND ALCOHOL: The patient denies. FAMILY PSYCHIATRIC HISTORY: The patient denies. SOCIAL HISTORY: The patient lives alone in the [place] area. She states that she went through the 12th grade that she worked for [employer] for many years, but could not tell me how long it has been since she is retired. She has a daughter and a son-in-law. Nursing has talked to daughter and apparently family is unable to stay with her, but again notes that her behavior has been deteriorating and especially irritable. MENTAL STATUS EXAMINATION: This is a 73-year-old -[place]ish female in a chair, primarily cooperative with interview, slightly irritable. Good eye contact. No psychomotor agitation or retardation. Speech, regular rate and rhythm. Mood is not directly laced with affect, again slightly irritable. Thought process; rational, but does minimize certain parts of the story, relevant, goal directed. THOUGHT CONTENT: Denies suicidal or homicidal ideation, auditory or visual hallucinations or delusions. Cognitive exam, she knows that she is in [place] and that it is September 2018 and the day is Tuesday. She knows the president is Movile. She can give me a fairly lucid sequence of events, although HISTORY AND PHYSICAL [id number] TRISTON DUNN again minimizes any acting out on her part. She slept 9.75 hours last night. 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 Rule out mood disorder secondary to hyponatremia as the patient has a sodium of 115. PLAN: We will admit to assisted. We will discontinue amitriptyline as tricyclics are not recommended for this age range. If the patient has trouble sleeping, we will change to another safer sleeper. We will observe the patient's behavior. Dr. Garibay will manage medical care. We will get more information and get a structured interview such as the Folstein for the patient to better assess cognitive deficits over the course of the admission. Case discussed with nursing. Chart reviewed and the patient interviewed. TRANSINT:[id number] Voice Confirmation ID: [id number] DOCUMENT ID: [id number] AISHWARYA ANDINO MD at 1252 CC: [id number] DICTATION DATE: 10/17/181806 CARD LACER: 10/17/182246 ADM IN [place] [id number] [place] [address]
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
--- NOTE | 2018-10-21 12:52 | PN ---
PATIENT:TRISTON BISHOP MEDICAL RECORD: [id number] LOCATION:[facility] ADMISSION DATE: 10/16/18 PROGRESS NOTE DATE OF SERVICE: 10/19/2018 SUBJECTIVE: Ms. Bishop is a 73-year-old female who had become aggressive with staff while getting treatment up on the med/surg floor for right lower lobe pneumonia. The patient was aggressive verbally and physically with staff. The next day after coming here, she has been pleasant and appropriate. I would get further information from her family that states that the patient does have an in-home caregiver Tuesday to , but inevitably for at least the last month, on Tuesday, the patient has had to be admitted to a hospital. The family suspects the patient is misusing her medications. The family also states that the patient has a history of illicit substance abuse, which the patient denies. On interview with me today, the patient is calm, pleasant and appropriate. She admits that she might be confusing her medications. She is alert and oriented times 4. She very much wishes to go home, although the patient's family has lot of concerns about this. She is eating 175 and 20%. Last bowel movement was on the . Fasting last blood sugar is 85 and she slept 8.25 hours. I have had her on medication compliance program where she is to alert the nurses when it is time for her medications, and according to nursing report she has done well with that. OBJECTIVE: LATEST VITAL SIGNS: Temperature 98.8, pulse 88, respirations 20, blood pressure 159/75 and 95%. There is some report that she is on O2 at home, but she has been on room air here with good oximetry. ASSESSMENT: Unchanged. PLAN: Have conferred with rail maintenance worker and since the patient at this point would be deemed to have capacity, I have recommended the family get a lockbox for her medications. They might consider legal guardianship as well considering the patient's recent record and poor decision making. Case discussed with nursing, chart reviewed and the patient interviewed. TRANSINT:[id number] Voice Confirmation ID: [id number] DOCUMENT ID: [id number] AISHWARYA ANDINO MD at 1256 CC: [id number] DICTATION DATE: 10/19/181757 MED PEDS: 10/19/18 2307 ADM IN [facility] [address] [place] [id number]
[2018-10-21 20:52] VITALS: BP 96/41
[2018-10-22 07:43] VITALS: BP 107/69
[2018-10-22 20:24] VITALS: BP 130/80
[2018-10-23 07:29] VITALS: BP 119/63
[2018-10-23] MEDS ORDERED: LISINOPRIL10 MG PO (13:19)
[2018-10-23] MEDS ORDERED: VITAMIN D5000 UNIT PO (13:20)
--- NOTE | 2018-10-23 18:34 | PN ---
PATIENT:TRISTON DUNN MEDICAL RECORD: [id number] LOCATION:[facility] ADMISSION DATE: 10/16/18 PROGRESS NOTE DATE OF SERVICE: 10/23/2018 SUBJECTIVE: The patient's case was discussed with staff. She has no new complaint. OBJECTIVE: The patient is in good behavioral control with no thoughts of harming herself or others. She has limited insight about her situation, but certainly no evidence of acute dangerousness. ASSESSMENT: No change in diagnoses. PLAN: The patient will be transitioned out of the hospital today. Her long-term prognosis is guarded. Brief supportive and educational interventions were made. TRANSINT:[id number] Voice Confirmation ID: [id number] DOCUMENT ID: [id number] RICARDO HOYT MD at 1834 CC: [id number] DICTATION DATE: 10/23/18 1326 CONTINUOUS ABSORPTION PROCESS OPERATOR: 10/23/18 1353 DIS IN 10/23/18 [facility] [address] [place] [address]
== END 2018-10-23 13:15 | disposition home or self-care (01) | DRG 56 ==
LOC: D.PSYCH 17:48
PROVIDERS: ADMIT Psychiatry & Neurology Psychiatry; ATTEND Psychiatry & Neurology Psychiatry
DX: G30.1 Alzheimer's disease with late onset (principal); J18.1 Lobar pneumonia, unspecified organism; F33.1 Major depressive disorder, recurrent, moderate; J44.0 Chronic obstructive pulmonary disease with (acute) lower respiratory infection; F02.81 Dementia in other diseases classified elsewhere, unspecified severity, with behavioral disturbance; E87.1 Hypo-osmolality and hyponatremia; I10 Essential (primary) hypertension; I25.10 Atherosclerotic heart disease of native coronary artery without angina pectoris; E78.5 Hyperlipidemia, unspecified; M19.90 Unspecified osteoarthritis, unspecified site; K21.9 Gastro-esophageal reflux disease without esophagitis; E11.9 Type 2 diabetes mellitus without complications; E55.9 Vitamin D deficiency, unspecified; R10.9 Unspecified abdominal pain; M54.5 Low back pain